=== PATIENT | male | born 1950 | race Caucasian/White ===

== ENCOUNTER 2019-10-20 14:08 | Inpatient (IN) ==
[2019-10-20] MEDS ORDERED: 0.9 % Sodium Chloride 1,000 ML IVC ONE (14:22)
[2019-10-20] MEDS ORDERED: Piperacillin/Tazobactam 3.375 GM in 0.9 % Sodium Chloride Mini Bag 100 ML IVPB ONE (14:24)
[2019-10-20] MEDS ORDERED: Vancomycin 1,250 MG/262.5 ML IV.SOLN IVPB STA (14:27)
[2019-10-20 14:43] LABS: Prothrombin Time 23.1 Seconds (9.4-12.1)
[2019-10-20 14:44] LABS: Basophils % 0.4 %; Eosinophils # 0.1 K/mcL (0.0-0.6); Eosinophils % 1.4 %; Hematocrit 27.5 % (37.5-50.1); Hemoglobin 8.7 g/dL (12.9-16.9); Immature Granulocytes % 1.4 % (0-4); Lymphocytes # 0.9 K/mcL (0.6-4.6); Lymphocytes % 10.8 %; Mean Corpuscular HGB Conc 31.6 g/dL (31.6-35.5); Mean Corpuscular Hemoglobin 33.1 pg (28.0-33.3); Mean Corpuscular Volume 104.6 fL (83.0-100.0); Mean Platelet Volume 11.6 fL (9.4-12.4); Monocytes # 0.9 K/mcL (0.0-1.3); Monocytes % 10.7 %; Platelet Count 163 K/mcL (140-400); Red Blood Count 2.63 M/mcL (4.19-5.50); Red Cell Distribution Width 17.6 % (11.5-14.5); Segmented Neutrophils % 75.3 %
[2019-10-20 14:45] LABS: Activated Partial Thrombo Time 21.9 Seconds (26.0-36.0)
[2019-10-20 14:58] LABS: ABG Base Excess 4 mEq/L (-2 to 3); ABG HCO3 30 mEq/L (21-27); ABG Oxygen Saturation 99 % (95-98); ABG PCO2 48 mmHg (35-45); ABG PO2 160 mmHg (85-104); ABG TCO2 31 mEq/L (20-26); Blood Gas FiO2 3.5 (1-15=lpm or21-100=%)
[2019-10-20 15:20] LABS: Albumin 3.4 g/dL (3.5-5.7); Albumin/Globulin Ratio 1.1 (1.1-2.2); Bilirubin,Direct 0.3 mg/dL (0.0-0.2); Bilirubin,Indirect 0.7 mg/dL (0.0-1.0); Calcium 8.2 mg/dL (8.6-10.3); Magnesium 1.7 mg/dL (1.6-2.6); Phosphorous 4.8 mg/dL (2.7-4.5); Potassium 4.3 mEq/L (3.5-5.1); Total Protein 6.4 g/dL (6.4-8.9)
[2019-10-20 15:59] LABS: Troponin I 0.08 ng/mL (< 0.04)
[2019-10-20 17:55] LABS: Bilirubin,Urine Negative (Negative); Blood,Urine Negative (Negative); Clarity,Urine Clear (Clear); Color,Urine Yellow (Yellow); Glucose,Urine (UA) Normal (Normal); Ketones,Urine Negative (Negative); Leukocyte Esterase,Urine Negative (Negative); Nitrite,Urine Negative (Negative); Protein,Urine Negative (Neg-Trace); Specific Gravity,Urine 1.013 (1.010-1.025); Urobilinogen,Urine Normal (Normal)
[2019-10-20] MEDS ORDERED: Naloxone 0.4 MG/ML INJ IVP PRN (20:43)
[2019-10-20] MEDS ORDERED: Dextrose Gel 15 GM/37.5 ML TUBE PO PRN ×2 (22:35)
[2019-10-20] MEDS ORDERED: D5% in Water 1,000 ML IVC PRN (22:35)
[2019-10-20] MEDS ORDERED: *HR* Dextrose 50 % in Water (Syg) 50 ML SYRINGE IVP PRN (22:35)
[2019-10-20] MEDS ORDERED: Nitroglycerin 0.4 MG TAB.SUBL SL PRN (22:36)
[2019-10-20] MEDS ORDERED: *HR* Warfarin 2.5 MG TABLET PO ONE (23:09)
[2019-10-21] MEDS ORDERED: 0.9 % Sodium Chloride 1,000 ML IV ONE (00:13)
[2019-10-21 03:13] LABS: Basophils % 0.4 %; Eosinophils # 0.3 K/mcL (0.0-0.6); Eosinophils % 4.1 %; Hematocrit 25.3 % (37.5-50.1); Immature Granulocytes % 1.1 % (0-4); Lymphocytes # 0.7 K/mcL (0.6-4.6); Lymphocytes % 9.9 %; Mean Corpuscular HGB Conc 31.6 g/dL (31.6-35.5); Mean Corpuscular Hemoglobin 33.1 pg (28.0-33.3); Mean Corpuscular Volume 104.5 fL (83.0-100.0); Mean Platelet Volume 11.5 fL (9.4-12.4); Monocytes # 0.8 K/mcL (0.0-1.3); Monocytes % 11.2 %; Neutrophils # 5.3 K/mcL (1.6-8.9); Platelet Count 126 K/mcL (140-400); Red Blood Count 2.42 M/mcL (4.19-5.50); Red Cell Distribution Width 17.6 % (11.5-14.5); Segmented Neutrophils % 73.3 %; White Blood Count 7.2 K/mcL (4.3-11.1)
[2019-10-21 03:36] LABS: INR 2.5; Prothrombin Time 28.8 Seconds (9.4-12.1)
[2019-10-21 03:44] LABS: Troponin I 0.06 ng/mL (< 0.04)
[2019-10-21 04:09] LABS: Albumin 2.9 g/dL (3.5-5.7); Albumin/Globulin Ratio 1.1 (1.1-2.2); Bilirubin,Total 0.8 mg/dL (0.3-1.0); Calcium 7.6 mg/dL (8.6-10.3); Globulin 2.6 g/dL (2.4-3.5); Magnesium 1.6 mg/dL (1.6-2.6); Phosphorous 4.1 mg/dL (2.7-4.5); Potassium 3.9 mEq/L (3.5-5.1); Total Protein 5.5 g/dL (6.4-8.9)
[2019-10-21] MEDS: Piperacillin/Tazobactam 3.375 GM in 0.9 % Sodium Chloride Mini Bag 100 ML IVPB SCH ×3 (06:02→21:26)
[2019-10-21] MEDS: PARoxetine 20 MG TABLET PO SCH (08:14)
[2019-10-21] MEDS: Aspirin Enteric Coated 81 MG Tablet PO SCH (08:14)
[2019-10-21] MEDS: carvediloL 6.25 MG TABLET PO SCH ×2 (08:15→21:11)
[2019-10-21] MEDS: Famotidine 20 MG TABLET PO SCH ×2 (08:15→21:26)
[2019-10-21] MEDS: Insulin LISPRO 300 UNITS/3 ML VIAL SQ SCH ×3 (09:13→16:07)
[2019-10-21] MEDS: Tiotropium 18 MCG inhalation IH SCH (10:37)
[2019-10-21] MEDS ORDERED: Vancomycin 1,250 MG/262.5 ML IV.SOLN IVPB SCH (16:00)
[2019-10-21] MEDS ORDERED: *HR* Warfarin 2.5 MG TABLET PO ONE (18:00)
[2019-10-21] MEDS ORDERED: Warfarin perPT PO PRN (18:00)
[2019-10-21] MEDS ORDERED: Insulin LISPRO 300 UNITS/3 ML VIAL SQ SCH (21:00)
[2019-10-22 05:15] LABS: INR 2.9; Prothrombin Time 32.8 Seconds (9.4-12.1)
[2019-10-22] MEDS: Piperacillin/Tazobactam 3.375 GM in 0.9 % Sodium Chloride Mini Bag 100 ML IVPB SCH (05:51)
[2019-10-22] MEDS: Famotidine 20 MG TABLET PO SCH (08:19)
[2019-10-22] MEDS: Aspirin Enteric Coated 81 MG Tablet PO SCH (08:19)
[2019-10-22] MEDS: PARoxetine 20 MG TABLET PO SCH (08:19)
[2019-10-22] MEDS: carvediloL 6.25 MG TABLET PO SCH (08:20)
[2019-10-22] MEDS: Insulin LISPRO 300 UNITS/3 ML VIAL SQ SCH ×2 (08:20→12:27)
[2019-10-22 08:26] LABS: Hematocrit 24.2 % (37.5-50.1); Hemoglobin 7.8 g/dL (12.9-16.9); Mean Corpuscular HGB Conc 32.2 g/dL (31.6-35.5); Mean Corpuscular Hemoglobin 33.8 pg (28.0-33.3); Mean Corpuscular Volume 104.8 fL (83.0-100.0); Mean Platelet Volume 10.8 fL (9.4-12.4); Platelet Count 129 K/mcL (140-400); Red Blood Count 2.31 M/mcL (4.19-5.50); Red Cell Distribution Width 17.6 % (11.5-14.5); White Blood Count 6.7 K/mcL (4.3-11.1)
[2019-10-22 08:46] LABS: BUN/Creatinine Ratio 18 (6-26); Blood Urea Nitrogen 24 mg/dL (8-23); Calcium 7.8 mg/dL (8.6-10.3); Carbon Dioxide 28 mEq/L (23-29); Chloride 102 mEq/L (98-107); Glucose 118 mg/dL (70-105); Magnesium 1.7 mg/dL (1.6-2.6); Osmolality,Calculated 287 (280-300); Potassium 3.6 mEq/L (3.5-5.1); Sodium 136 mEq/L (136-145); eGFR For African Americans > 60 (> 60); eGFR For Non-African Americans 55 (> 60)
[2019-10-22 11:16] VITALS: BP 101/53
[2019-10-22] MEDS: Tiotropium 18 MCG inhalation IH SCH (11:21)
[2019-10-22] MEDS ORDERED: *HR* Warfarin 2.5 MG TABLET PO ONE (18:00)
== END 2019-10-22 14:26 | disposition left against medical advice (07) | DRG 194 ==
LOC: 3NENU 14:08 → EMEROOARM 14:08 → 3NENU 21:48 → ICNU 21:56 → 3BNU 10-21 17:58
PROVIDERS: ADMIT Family Medicine; ATTEND Family Medicine

== ENCOUNTER 2019-11-12 05:21 | Inpatient (IN) ==
[2019-11-12] MEDS ORDERED: 0.9 % Sodium Chloride 1,000 ML IVC ONE (05:28)
[2019-11-12] MEDS ORDERED: 0.9 % Sodium Chloride 1,000 ML ONE ×3 (05:38→07:21)
[2019-11-12 06:03] LABS: Basophils % 0.3 %; Eosinophils % 0.4 %; Hematocrit 30.8 % (37.5-50.1); Hemoglobin 9.9 g/dL (12.9-16.9); Immature Granulocytes % 0.7 % (0-4); Lymphocytes % 12.7 %; Mean Corpuscular HGB Conc 32.1 g/dL (31.6-35.5); Mean Corpuscular Hemoglobin 32.8 pg (28.0-33.3); Mean Platelet Volume 11.9 fL (9.4-12.4); Monocytes # 0.5 K/mcL (0.0-1.3); Monocytes % 6.1 %; Platelet Count 125 K/mcL (140-400); Red Blood Count 3.02 M/mcL (4.19-5.50); Red Cell Distribution Width 15.9 % (11.5-14.5); Segmented Neutrophils % 79.8 %; White Blood Count 7.5 K/mcL (4.3-11.1)
[2019-11-12 06:07] LABS: INR 1.5; Prothrombin Time 17.4 Seconds (9.4-12.1)
[2019-11-12 06:09] LABS: Activated Partial Thrombo Time 31.6 Seconds (26.0-36.0)
[2019-11-12 06:17] LABS: Bilirubin,Urine Negative (Negative); Blood,Urine Negative (Negative); Clarity,Urine Clear (Clear); Color,Urine Yellow (Yellow); Glucose,Urine (UA) Normal (Normal); Ketones,Urine Negative (Negative); Leukocyte Esterase,Urine Negative (Negative); Nitrite,Urine Negative (Negative); Protein,Urine Trace mg/dL (Neg-Trace); Specific Gravity,Urine 1.019 (1.010-1.025); Urobilinogen,Urine Normal (Normal)
[2019-11-12] MEDS ORDERED: 0.9 % Sodium Chloride 1,000 ML IV ONE (06:17)
[2019-11-12] MEDS ORDERED: 0.9 % Sodium Chloride 500 ML IVC ONE (07:06)
[2019-11-12 07:23] LABS: Albumin 3.5 g/dL (3.5-5.7); Albumin/Globulin Ratio 1.3 (1.1-2.2); Bilirubin,Direct 0.1 mg/dL (0.0-0.2); Bilirubin,Indirect 0.3 mg/dL (0.0-1.0); Bilirubin,Total 0.4 mg/dL (0.3-1.0); Calcium 8.3 mg/dL (8.6-10.3); Globulin 2.8 g/dL (2.4-3.5); Total Protein 6.3 g/dL (6.4-8.9); Troponin I 0.03 ng/mL (< 0.04)
[2019-11-12] MEDS ORDERED: Insulin Regular, Human 100 UNIT/ML IV ONE (08:34)
[2019-11-12] MEDS ORDERED: *HR* Dextrose 25% in Water (Syg) 10 ML SYRINGE IVP ONE (08:34)
[2019-11-12] MEDS ORDERED: Vancomycin 1,250 MG/262.5 ML IV.SOLN IVPB ONE (08:46)
[2019-11-12] MEDS: Vancomycin 1,250 MG/262.5 ML IV.SOLN IVPB ONE ×2 (08:47→11:09)
[2019-11-12] MEDS: Cefepime HCl 2,000 MG in Water for inj. (sterile) 20 ML IVP SCH ×2 (09:53→21:43)
[2019-11-12] MEDS: Norepinephrine 4 MG/254 ML IV.SOLN IVC SCH (09:54)
[2019-11-12] MEDS ORDERED: Perflutren Lipid Microsphere 1.3 ML in 0.9 % Sodium Chloride 8.7 ML IVP ONE (13:46)
[2019-11-12 14:29] LABS: Hematocrit 26.3 % (37.5-50.1); Hemoglobin 8.4 g/dL (12.9-16.9); Mean Corpuscular HGB Conc 31.9 g/dL (31.6-35.5); Mean Corpuscular Hemoglobin 32.2 pg (28.0-33.3); Mean Corpuscular Volume 100.8 fL (83.0-100.0); Platelet Count 125 K/mcL (140-400); Red Blood Count 2.61 M/mcL (4.19-5.50); Red Cell Distribution Width 15.9 % (11.5-14.5)
[2019-11-12] MEDS ORDERED: 0.9 % Sodium Chloride 1,000 ML IVC SCH (14:30)
[2019-11-12] MEDS ORDERED: *HR* Dextrose 50 % in Water (Syg) 50 ML SYRINGE IVP PRN (14:31)
[2019-11-12] MEDS ORDERED: Dextrose Gel 15 GM/37.5 ML TUBE PO PRN ×2 (14:31)
[2019-11-12] MEDS ORDERED: D5% in Water 1,000 ML IVC PRN (14:31)
[2019-11-12] MEDS: Ringers Solution, Lactated 1,000 ML IVC SCH ×2 (15:10→23:26)
[2019-11-12] MEDS ORDERED: Cefepime HCl 2,000 MG in Water for inj. (sterile) 20 ML IVP SCH (16:00)
[2019-11-12] MEDS: Insulin LISPRO 300 UNITS/3 ML VIAL SQ SCH (16:48)
[2019-11-12] MEDS ORDERED: Warfarin perPT PO PRN (18:00)
[2019-11-12] MEDS ORDERED: *HR* Warfarin 5 MG TABLET PO ONE (18:00)
[2019-11-12] MEDS ORDERED: *HR* Heparin 5,000 UNIT/ML VIAL SQ SCH (18:00)
[2019-11-12] MEDS ORDERED: *HR* Warfarin 3 MG TABLET PO ONE (18:00)
[2019-11-12] MEDS ORDERED: Insulin LISPRO 300 UNITS/3 ML VIAL SQ SCH (21:00)
[2019-11-13 03:32] LABS: Basophils % 0.5 %; Eosinophils # 0.1 K/mcL (0.0-0.6); Eosinophils % 1.9 %; Hematocrit 23.8 % (37.5-50.1); Hemoglobin 7.6 g/dL (12.9-16.9); Immature Granulocytes % 0.9 % (0-4); Lymphocytes # 1.1 K/mcL (0.6-4.6); Mean Corpuscular HGB Conc 31.9 g/dL (31.6-35.5); Mean Corpuscular Hemoglobin 32.2 pg (28.0-33.3); Mean Corpuscular Volume 100.8 fL (83.0-100.0); Monocytes # 0.5 K/mcL (0.0-1.3); Monocytes % 7.9 %; Neutrophils # 4.1 K/mcL (1.6-8.9); Platelet Count 104 K/mcL (140-400); Red Blood Count 2.36 M/mcL (4.19-5.50); Red Cell Distribution Width 16.1 % (11.5-14.5); Segmented Neutrophils % 69.8 %; White Blood Count 5.8 K/mcL (4.3-11.1)
[2019-11-13 03:35] LABS: INR 2.2; Prothrombin Time 24.7 Seconds (9.4-12.1)
[2019-11-13 03:49] LABS: Albumin 3.1 g/dL (3.5-5.7); Albumin/Globulin Ratio 1.2 (1.1-2.2); Bilirubin,Total 0.3 mg/dL (0.3-1.0); Calcium 8.4 mg/dL (8.6-10.3); Globulin 2.5 g/dL (2.4-3.5); Potassium 5.1 mEq/L (3.5-5.1); Total Protein 5.6 g/dL (6.4-8.9)
[2019-11-13] MEDS: Insulin LISPRO 300 UNITS/3 ML VIAL SQ SCH ×3 (07:35→16:26)
[2019-11-13] MEDS: Ringers Solution, Lactated 1,000 ML IVC SCH ×2 (08:17→17:10)
[2019-11-13] MEDS ORDERED: Cosyntropin 250 MCG/2 ML VIAL IVP ONE (10:00)
[2019-11-13] MEDS: Norepinephrine 4 MG/254 ML IV.SOLN IVC SCH (10:37)
[2019-11-13] MEDS: Cefepime HCl 2,000 MG in Water for inj. (sterile) 20 ML IVP SCH ×2 (10:37→23:26)
[2019-11-13 14:06] LABS: Bilirubin,Urine Negative (Negative); Blood,Urine Negative (Negative); Clarity,Urine Cloudy (Clear); Color,Urine Yellow (Yellow); Glucose,Urine (UA) Normal (Normal); Ketones,Urine Negative (Negative); Leukocyte Esterase,Urine Negative (Negative); Nitrite,Urine Negative (Negative); PH,Urine 5.5 pH Units (5.0-8.0); Protein,Urine 30 mg/dL (Neg-Trace); Specific Gravity,Urine 1.018 (1.010-1.025); Urobilinogen,Urine Normal (Normal)
[2019-11-13 14:07] LABS: Bacteria,Urine None Seen per hpf (None-Few); RBC,Urine 0-3 per hpf (0-3); Squamous Epithelial Cell,Urine Many per lpf (None-Few)
[2019-11-13 14:12] LABS: Sodium, Urine 33.3 mEq/L
[2019-11-13 15:01] LABS: Hyaline Casts,Urine Few per lpf (None-Few)
[2019-11-13 15:02] LABS: Granular Casts,Urine Moderate per lpf (None Seen)
[2019-11-13] MEDS ORDERED: Warfarin perPT PO PRN (16:37)
[2019-11-13] MEDS ORDERED: Dextrose Gel 15 GM/37.5 ML TUBE PO PRN ×2 (16:37)
[2019-11-13] MEDS ORDERED: Ondansetron ODT 4 MG TAB.RAPDIS PO PRN (16:37)
[2019-11-13] MEDS ORDERED: haloperidoL 1 MG TABLET PO PRN (16:37)
[2019-11-13] MEDS ORDERED: *HR* Dextrose 50 % in Water (Syg) 50 ML SYRINGE IVP PRN (16:37)
[2019-11-13] MEDS ORDERED: Morphine Sulfate Oral CONC 10 MG/0.5 ML ORAL.SYG PO PRN (16:37)
[2019-11-13] MEDS ORDERED: D5% in Water 1,000 ML IVC PRN (16:37)
[2019-11-13] MEDS ORDERED: *HR* Warfarin 1 MG TABLET PO ONE ×2 (18:00)
[2019-11-13] MEDS ORDERED: Vancomycin 1,250 MG/262.5 ML IV.SOLN IVPB SCH (18:00)
[2019-11-13] MEDS ORDERED: Insulin LISPRO 300 UNITS/3 ML VIAL SQ SCH (21:00)
[2019-11-14 02:21] LABS: Basophils % 0.4 %; Eosinophils # 0.1 K/mcL (0.0-0.6); Eosinophils % 1.5 %; Hematocrit 23.1 % (37.5-50.1); Hemoglobin 7.6 g/dL (12.9-16.9); Immature Granulocytes % 0.8 % (0-4); Lymphocytes # 0.9 K/mcL (0.6-4.6); Lymphocytes % 18.9 %; Mean Corpuscular HGB Conc 32.9 g/dL (31.6-35.5); Mean Corpuscular Hemoglobin 32.5 pg (28.0-33.3); Mean Corpuscular Volume 98.7 fL (83.0-100.0); Mean Platelet Volume 11.2 fL (9.4-12.4); Monocytes # 0.4 K/mcL (0.0-1.3); Monocytes % 8.2 %; Neutrophils # 3.3 K/mcL (1.6-8.9); Platelet Count 106 K/mcL (140-400); Red Blood Count 2.34 M/mcL (4.19-5.50); Red Cell Distribution Width 15.9 % (11.5-14.5); Segmented Neutrophils % 70.2 %; White Blood Count 4.8 K/mcL (4.3-11.1)
[2019-11-14 02:22] LABS: INR 2.3; Prothrombin Time 26.6 Seconds (9.4-12.1)
[2019-11-14 02:34] LABS: Alanine Aminotransferase 16 Units/L (7-52); Albumin/Globulin Ratio 1.2 (1.1-2.2); Alkaline Phosphatase 54 Units/L (34-104); Aspartate Amino Transferase 15 Units/L (13-39); BUN/Creatinine Ratio 35 (6-26); Bilirubin,Total 0.3 mg/dL (0.3-1.0); Blood Urea Nitrogen 44 mg/dL (8-23); Calcium 8.5 mg/dL (8.6-10.3); Carbon Dioxide 18 mEq/L (23-29); Chloride 106 mEq/L (98-107); Globulin 2.5 g/dL (2.4-3.5); Glucose 131 mg/dL (70-105); Magnesium 1.3 mg/dL (1.6-2.6); Osmolality,Calculated 279 (280-300); Potassium 4.9 mEq/L (3.5-5.1); Sodium 128 mEq/L (136-145); Total Protein 5.5 g/dL (6.4-8.9); eGFR For African Americans > 60 (> 60); eGFR For Non-African Americans 56 (> 60)
[2019-11-14] MEDS: Ringers Solution, Lactated 1,000 ML IVC SCH (04:29)
[2019-11-14] MEDS ORDERED: Insulin LISPRO 300 UNITS/3 ML VIAL SQ SCH (07:30)
[2019-11-14 08:00] VITALS: BP 122/66
[2019-11-14] MEDS ORDERED: Famotidine 20 MG TABLET PO SCH (09:00)
[2019-11-14] MEDS ORDERED: Psyllium 1 PACKET POWD.PACK PO SCH (09:00)
[2019-11-14] MEDS: Cefepime HCl 2,000 MG in Water for inj. (sterile) 20 ML IVP SCH (10:38)
== END 2019-11-14 13:13 | disposition home or self-care (01) | DRG 871 ==
LOC: EMEROOARM 05:21 → ICNU 10:42 → 2ANU 11-13 16:59
PROVIDERS: ADMIT Family Medicine; ATTEND Family Medicine

== ENCOUNTER 2019-11-29 15:12 | Inpatient (IN) ==
[2019-11-29] MEDS ORDERED: Isovue-370 500 ML BOTTLE IVP ONE (15:32)
[2019-11-29] MEDS: 0.9 % Sodium Chloride 1,000 ML IVC SCH (15:45)
[2019-11-29 16:05] LABS: Basophils % 0.4 %; Eosinophils % 0.7 %; Hematocrit 28.7 % (37.5-50.1); Hemoglobin 9.4 g/dL (12.9-16.9); Immature Granulocytes % 0.4 % (0-4); Lymphocytes # 0.6 K/mcL (0.6-4.6); Lymphocytes % 11.3 %; Mean Corpuscular HGB Conc 32.8 g/dL (31.6-35.5); Mean Corpuscular Hemoglobin 32.2 pg (28.0-33.3); Mean Corpuscular Volume 98.3 fL (83.0-100.0); Mean Platelet Volume 10.7 fL (9.4-12.4); Monocytes # 0.4 K/mcL (0.0-1.3); Neutrophils # 4.4 K/mcL (1.6-8.9); Platelet Count 137 K/mcL (140-400); Red Blood Count 2.92 M/mcL (4.19-5.50); Red Cell Distribution Width 15.9 % (11.5-14.5); Segmented Neutrophils % 79.2 %; White Blood Count 5.5 K/mcL (4.3-11.1)
[2019-11-29 16:10] LABS: INR 2.5; Prothrombin Time 28.1 Seconds (9.4-12.1)
[2019-11-29 16:32] LABS: Calcium 8.9 mg/dL (8.6-10.3); Troponin I 0.05 ng/mL (< 0.04)
[2019-11-29] MEDS ORDERED: 0.9 % Sodium Chloride 1,000 ML IVC ONE (16:35)
[2019-11-29] MEDS ORDERED: Aspirin 81 MG TAB.CHEW PO ONE (16:35)
[2019-11-29] MEDS ORDERED: Naloxone 0.4 MG/ML INJ IVP PRN (17:20)
[2019-11-29] MEDS ORDERED: Ondansetron 4 MG/2 ML VIAL IVP PRN (17:20)
[2019-11-29] MEDS ORDERED: *HR* Dextrose 50 % in Water (Vial) 50 ML VIAL IVP PRN (17:25)
[2019-11-29] MEDS ORDERED: Dextrose Gel 15 GM/37.5 ML TUBE PO PRN ×2 (17:25)
[2019-11-29] MEDS ORDERED: D5% in Water 1,000 ML IVC PRN (17:25)
[2019-11-29] MEDS ORDERED: Sodium Bicarbonate 150 MEQ in D5% in Water 1,000 ML IVC SCH (17:30)
[2019-11-29 20:01] LABS: Bilirubin,Urine Negative (Negative); Blood,Urine Negative (Negative); Clarity,Urine Clear (Clear); Color,Urine Yellow (Yellow); Glucose,Urine (UA) Normal (Normal); Hyaline Casts,Urine Few per lpf (None Seen); Ketones,Urine Negative (Negative); Leukocyte Esterase,Urine Negative (Negative); Nitrite,Urine Negative (Negative); PH,Urine 5.5 pH Units (5.0-8.0); Protein,Urine 50 mg/dL (Neg-Trace); RBC,Urine 0-3 per hpf (0-3); Renal Epithelial Cells,Urine Few per hpf (None-Few); Squamous Epithelial Cell,Urine Few per hpf (None-Few); Transitional Epi Cells,Urine Few per hpf (None-Few); Urobilinogen,Urine Normal (Normal); WBC,Urine 0-3 per hpf (0-3)
[2019-11-29] MEDS: Insulin DETEMIR 100 UNIT/ML X5UNITS SQ SCH (22:29)
[2019-11-30 05:16] LABS: Basophils % 0.5 %; Eosinophils # 0.1 K/mcL (0.0-0.6); Eosinophils % 2.1 %; Hematocrit 22.8 % (37.5-50.1); Immature Granulocytes % 0.5 % (0-4); Lymphocytes # 0.9 K/mcL (0.6-4.6); Lymphocytes % 21.4 %; Mean Corpuscular HGB Conc 33.8 g/dL (31.6-35.5); Mean Corpuscular Hemoglobin 32.8 pg (28.0-33.3); Mean Platelet Volume 10.8 fL (9.4-12.4); Monocytes # 0.4 K/mcL (0.0-1.3); Neutrophils # 2.8 K/mcL (1.6-8.9); Platelet Count 106 K/mcL (140-400); Red Blood Count 2.35 M/mcL (4.19-5.50); Red Cell Distribution Width 15.7 % (11.5-14.5); Segmented Neutrophils % 65.5 %; White Blood Count 4.3 K/mcL (4.3-11.1)
[2019-11-30 05:17] LABS: Hemoglobin 7.7 g/dL (12.9-16.9)
[2019-11-30 05:41] LABS: Calcium 7.9 mg/dL (8.6-10.3); Potassium 4.8 mEq/L (3.5-5.1); Troponin I 0.04 ng/mL (< 0.04)
[2019-11-30 05:56] LABS: Folate 9.6 ng/mL (3.0-16.0)
[2019-11-30 05:57] LABS: Vitamin B12 160 pg/mL (250-1100)
[2019-11-30 06:00] LABS: Thyroid Stimulating Hormone 1.047 mcIU/mL (0.340-5.600)
[2019-11-30] MEDS ORDERED: Iron Sucrose Complex 400 MG in 0.9 % Sodium Chloride 250 ML IVPB ONE (07:29)
[2019-11-30] MEDS: 0.9 % Sodium Chloride 1,000 ML IVC SCH (07:38)
[2019-11-30] MEDS: Insulin LISPRO 300 UNITS/3 ML VIAL SQ SCH ×3 (08:29→16:56)
[2019-11-30] MEDS ORDERED: Cyanocobalamin (B-12) 1,000 MCG/ML VIAL SQ SCH (09:00)
[2019-11-30] MEDS: Cyanocobalamin (B-12) 1,000 MCG/ML VIAL IM SCH (10:57)
[2019-11-30] MEDS ORDERED: *HR* LORazepam 0.5 MG TABLET PO PRN (13:33)
[2019-11-30] MEDS ORDERED: Bisacodyl 10 MG RECTAL SUPPOSITORY RC PRN (13:33)
[2019-11-30] MEDS ORDERED: Sennosides 8.6 MG TABLET PO PRN (13:33)
[2019-11-30] MEDS ORDERED: *HR* HYDROcodone/Acet 5/325 mg TABLET PO PRN (13:33)
[2019-11-30] MEDS ORDERED: Acetaminophen 650 MG RECTAL SUPP RC PRN (13:33)
[2019-11-30] MEDS ORDERED: Ondansetron ODT 4 MG TAB.RAPDIS PO PRN (13:33)
[2019-11-30] MEDS ORDERED: Morphine Sulfate Oral CONC 10 MG/0.5 ML ORAL.SYG PO PRN (13:33)
[2019-11-30] MEDS: Sodium Bicarbonate 150 MEQ in D5% in Water 1,000 ML IVC SCH ×2 (14:17→21:53)
[2019-11-30] MEDS: Psyllium 1 PACKET POWD.PACK PO SCH ×2 (16:57→20:40)
[2019-11-30 18:00] LABS: Uric Acid 9.7 mg/dL (2.3-7.6)
[2019-11-30] MEDS ORDERED: *HR* Warfarin 2.5 MG TABLET PO ONE (18:00)
[2019-11-30] MEDS ORDERED: Warfarin perPT PO PRN (18:00)
[2019-11-30 19:35] LABS: Hepatitis B Surface Antigen Nonreactive (Nonreactive)
[2019-11-30 20:04] LABS: Hepatitis B Core IgM Nonreactive (Nonreactive)
[2019-11-30 20:05] LABS: Hepatitis C Virus Antibody Nonreactive (Nonreactive)
[2019-11-30 20:06] LABS: Hepatitis A Antibody IgM Nonreactive (Nonreactive)
[2019-11-30] MEDS: Insulin DETEMIR 100 UNIT/ML X5UNITS SQ SCH (21:01)
[2019-11-30] MEDS ORDERED: 0.9 % Sodium Chloride 1,000 ML IVC ONE (22:39)
[2019-12-01 04:24] LABS: Hematocrit 23.1 % (37.5-50.1); Hemoglobin 8.1 g/dL (12.9-16.9); Mean Corpuscular HGB Conc 35.1 g/dL (31.6-35.5); Mean Corpuscular Hemoglobin 33.1 pg (28.0-33.3); Mean Corpuscular Volume 94.3 fL (83.0-100.0); Mean Platelet Volume 10.9 fL (9.4-12.4); Platelet Count 119 K/mcL (140-400); Red Blood Count 2.45 M/mcL (4.19-5.50); Red Cell Distribution Width 15.9 % (11.5-14.5); White Blood Count 4.5 K/mcL (4.3-11.1)
[2019-12-01 04:33] LABS: INR 2.5; Prothrombin Time 28.9 Seconds (9.4-12.1)
[2019-12-01 04:36] LABS: Potassium 4.5 mEq/L (3.5-5.1)
[2019-12-01 04:40] LABS: Magnesium 1.4 mg/dL (1.6-2.6); Phosphorous 3.2 mg/dL (2.7-4.5)
[2019-12-01] MEDS ORDERED: Famotidine 20 MG TABLET PO SCH (09:00)
[2019-12-01] MEDS: Metoprolol XL (24 HR) Succ 25 MG TAB.ER.24H PO SCH (09:50)
[2019-12-01] MEDS: Famotidine 20 MG TABLET PO SCH (09:50)
[2019-12-01] MEDS: Cyanocobalamin (B-12) 1,000 MCG/ML VIAL IM SCH (09:51)
[2019-12-01] MEDS: PARoxetine 20 MG TABLET PO SCH (09:51)
[2019-12-01] MEDS: Psyllium 1 PACKET POWD.PACK PO SCH ×3 (09:51→22:51)
[2019-12-01] MEDS: Insulin LISPRO 300 UNITS/3 ML VIAL SQ SCH ×3 (09:53→18:15)
[2019-12-01] MEDS: 0.9 % Sodium Chloride 1,000 ML IVC SCH ×2 (13:01→22:52)
[2019-12-01] MEDS ORDERED: *HR* Warfarin 2.5 MG TABLET PO ONE (18:00)
[2019-12-01] MEDS: Insulin DETEMIR 100 UNIT/ML X5UNITS SQ SCH (22:51)
[2019-12-02 02:29] LABS: Prothrombin Time 22.6 Seconds (9.4-12.1)
[2019-12-02 02:48] LABS: Potassium 5.1 mEq/L (3.5-5.1)
[2019-12-02 08:14] VITALS: BP 125/66
[2019-12-02] MEDS: Insulin LISPRO 300 UNITS/3 ML VIAL SQ SCH (08:18)
[2019-12-02] MEDS: Famotidine 20 MG TABLET PO SCH (09:19)
[2019-12-02] MEDS: Metoprolol XL (24 HR) Succ 25 MG TAB.ER.24H PO SCH (09:19)
[2019-12-02] MEDS: PARoxetine 20 MG TABLET PO SCH (09:19)
[2019-12-02] MEDS: Cyanocobalamin (B-12) 1,000 MCG/ML VIAL IM SCH (09:20)
[2019-12-02] MEDS: Psyllium 1 PACKET POWD.PACK PO SCH (09:20)
[2019-12-02] MEDS ORDERED: *HR* Warfarin 2.5 MG TABLET PO ONE (18:00)
== END 2019-12-02 10:25 | disposition home health service (06) | DRG 281 ==
LOC: EMEROOARM 15:12 → 2ANU 15:12 → SUATTDRO 11-30 11:57
PROVIDERS: ADMIT Internal Medicine; ATTEND Internal Medicine

== ENCOUNTER 2019-12-22 14:23 | Inpatient (IN) ==
[2019-12-22] MEDS ORDERED: 0.9 % Sodium Chloride 500 ML IVC ONE (14:33)
[2019-12-22 14:57] LABS: Basophils % 0.3 %; Eosinophils % 0.5 %; Hematocrit 34.8 % (37.5-50.1); Hemoglobin 11.6 g/dL (12.9-16.9); Immature Granulocytes % 0.8 % (0-4); Lymphocytes # 1.3 K/mcL (0.6-4.6); Mean Corpuscular HGB Conc 33.3 g/dL (31.6-35.5); Mean Corpuscular Hemoglobin 32.3 pg (28.0-33.3); Mean Corpuscular Volume 96.9 fL (83.0-100.0); Mean Platelet Volume 10.8 fL (9.4-12.4); Monocytes # 0.8 K/mcL (0.0-1.3); Monocytes % 9.7 %; Neutrophils # 5.7 K/mcL (1.6-8.9); Platelet Count 141 K/mcL (140-400); Red Blood Count 3.59 M/mcL (4.19-5.50); Red Cell Distribution Width 15.8 % (11.5-14.5); Segmented Neutrophils % 72.7 %; White Blood Count 7.8 K/mcL (4.3-11.1)
[2019-12-22 15:02] LABS: INR 2.8; Prothrombin Time 32.4 Seconds (9.4-12.1)
[2019-12-22 15:16] LABS: Calcium 10.1 mg/dL (8.6-10.3); Potassium 5.2 mEq/L (3.5-5.1)
[2019-12-22 15:45] LABS: Bilirubin,Urine Negative (Negative); Blood,Urine Negative (Negative); Clarity,Urine Clear (Clear); Color,Urine Light-Yellow (Yellow); Glucose,Urine (UA) Normal (Normal); Granular Casts,Urine Few per lpf (None Seen); Ketones,Urine Negative (Negative); Leukocyte Esterase,Urine Negative (Negative); Mucus,Urine Few per lpf (None-Few); Nitrite,Urine Negative (Negative); Protein,Urine 30 mg/dL (Neg-Trace); RBC,Urine 0-3 per hpf (0-3); Specific Gravity,Urine 1.019 (1.010-1.025); Urobilinogen,Urine Normal (Normal); WBC,Urine 0-3 per hpf (0-3)
[2019-12-22 15:46] LABS: Amorphous Sediment,Urine Few per hpf (None-Few); Squamous Epithelial Cell,Urine Few per hpf (None-Few)
[2019-12-22 15:50] LABS: Hyaline Casts,Urine Moderate per lpf (None Seen)
[2019-12-22] MEDS ORDERED: *HR* Promethazine 25 MG/ML VIAL IVP PRN (16:19)
[2019-12-22] MEDS ORDERED: Dextrose Gel 15 GM/37.5 ML TUBE PO PRN ×2 (16:44)
[2019-12-22] MEDS ORDERED: Anticoagulation Consult 1 Each MC ONE (17:00)
[2019-12-22] MEDS ORDERED: Warfarin perPT PO PRN (18:00)
[2019-12-22] MEDS: Insulin LISPRO 300 UNITS/3 ML VIAL SQ SCH ×2 (20:58)
[2019-12-22] MEDS: Insulin DETEMIR 100 UNIT/ML X5UNITS SQ SCH (21:11)
[2019-12-22] MEDS: 0.9 % Sodium Chloride 1,000 ML IVC SCH (21:11)
[2019-12-22] MEDS ORDERED: *HR* Warfarin 2.5 MG TABLET PO ONE (21:45)
[2019-12-22 22:45] LABS: Calcium 9.5 mg/dL (8.6-10.3); Potassium 4.9 mEq/L (3.5-5.1)
[2019-12-23] MEDS: 0.9 % Sodium Chloride 1,000 ML IVC SCH (03:13)
[2019-12-23 03:14] LABS: INR 3.1; Prothrombin Time 35.1 Seconds (9.4-12.1)
[2019-12-23 03:24] LABS: Hematocrit 28.8 % (37.5-50.1); Mean Corpuscular Hemoglobin 33.2 pg (28.0-33.3); Mean Corpuscular Volume 97.6 fL (83.0-100.0); Mean Platelet Volume 11.5 fL (9.4-12.4); Platelet Count 115 K/mcL (140-400); Red Blood Count 2.95 M/mcL (4.19-5.50); Red Cell Distribution Width 15.7 % (11.5-14.5); White Blood Count 6.1 K/mcL (4.3-11.1)
[2019-12-23 03:28] LABS: Calcium 8.7 mg/dL (8.6-10.3); Potassium 4.5 mEq/L (3.5-5.1)
[2019-12-23 03:32] LABS: Hemoglobin 9.8 g/dL (12.9-16.9)
[2019-12-23] MEDS: Insulin LISPRO 300 UNITS/3 ML VIAL SQ SCH ×4 (08:11→21:06)
[2019-12-23] MEDS ORDERED: *HR* LORazepam 0.5 MG TABLET PO PRN (13:47)
[2019-12-23] MEDS ORDERED: *HR* HYDROcodone/Acet 5/325 mg TABLET PO PRN (13:47)
[2019-12-23] MEDS ORDERED: *HR* Warfarin 2 MG TABLET PO ONE (18:00)
[2019-12-23] MEDS: Insulin DETEMIR 100 UNIT/ML X5UNITS SQ SCH (21:07)
[2019-12-24 06:32] LABS: Hematocrit 28.7 % (37.5-50.1); Hemoglobin 9.6 g/dL (12.9-16.9); Immature Platelets 4.6 % (1.1-6.1); Mean Corpuscular HGB Conc 33.4 g/dL (31.6-35.5); Mean Corpuscular Hemoglobin 33.2 pg (28.0-33.3); Mean Corpuscular Volume 99.3 fL (83.0-100.0); Mean Platelet Volume 11.5 fL (9.4-12.4); Red Blood Count 2.89 M/mcL (4.19-5.50); Red Cell Distribution Width 16.1 % (11.5-14.5); White Blood Count 7.8 K/mcL (4.3-11.1)
[2019-12-24 06:39] LABS: INR 2.8; Prothrombin Time 32.1 Seconds (9.4-12.1)
[2019-12-24 06:45] LABS: Calcium 8.6 mg/dL (8.6-10.3); Potassium 4.4 mEq/L (3.5-5.1)
[2019-12-24 07:08] VITALS: BP 126/71
[2019-12-24] MEDS: Insulin LISPRO 300 UNITS/3 ML VIAL SQ SCH (08:55)
[2019-12-24] MEDS ORDERED: PARoxetine 20 MG TABLET PO SCH (09:00)
[2019-12-24] MEDS ORDERED: Famotidine 20 MG TABLET PO SCH (09:00)
== END 2019-12-24 11:39 | disposition hospice, home (50) | DRG 683 ==
LOC: EMEROOARM 14:23 → 2ANU 14:23 → SUATTDRO 17:03 → 2ANU 18:12
PROVIDERS: ADMIT Internal Medicine; ATTEND Family Medicine

== ENCOUNTER 2020-05-30 06:03 | Inpatient (IN) ==
[2020-05-30] MEDS ORDERED: Clindamycin 900 MG/50 ML 900 MG/50 ML IV.SOLN IVPB ONE (06:29)
[2020-05-30] MEDS ORDERED: Ringers Solution, Lactated 1,000 ML IVC SCH (06:30)
[2020-05-30] MEDS ORDERED: 0.9 % Sodium Chloride 500 ML IVC SCH ×2 (07:00→18:44)
[2020-05-30] MEDS ORDERED: *HR* FentaNYL (PF) 100 MCG/2 ML VIAL ONE ×3 (07:13→16:30)
[2020-05-30] MEDS ORDERED: Lidocaine -MPF 2% 2 ML VIAL ONE ×3 (07:13→14:43)
[2020-05-30] MEDS ORDERED: Bupivacaine/Clonidine Syringe 20 ML, Syringe LUER-LOK 1 EACH TP ONE ×2 (07:45→18:44)
[2020-05-30 08:01] LABS: INR 2.5; Prothrombin Time 28.3 Seconds (9.4-12.1)
[2020-05-30] MEDS ORDERED: Naloxone 0.4 MG/ML INJ IVP PRN ×2 (09:19→18:44)
[2020-05-30] MEDS ORDERED: *HR* Dextrose 50 % in Water (Vial) 50 ML VIAL IVP PRN ×2 (09:20→18:44)
[2020-05-30] MEDS ORDERED: Dextrose Gel 15 GM/37.5 ML TUBE PO PRN ×4 (09:20→18:44)
[2020-05-30] MEDS ORDERED: D5% in Water 1,000 ML IVC PRN ×2 (09:20→18:44)
[2020-05-30] MEDS ORDERED: Vancomycin 1 EACH in 0.9 % Sodium Chloride 250 ML IVPB SCH ×2 (09:22→18:44)
[2020-05-30] MEDS ORDERED: carvediloL 6.25 MG TABLET PO SCH (09:23)
[2020-05-30] MEDS ORDERED: Piperacillin/Tazobactam 3.375 GM in 0.9 % Sodium Chloride Mini Bag 100 ML IVPB SCH (09:30)
[2020-05-30] MEDS ORDERED: Clindamycin 900 MG/50 ML 900 MG/50 ML IV.SOLN IVPB STA (10:15)
[2020-05-30 10:24] LABS: Hemoglobin 8.1 g/dL (12.9-16.9); Mean Corpuscular HGB Conc 32.4 g/dL (31.6-35.5); Mean Platelet Volume 10.8 fL (9.4-12.4)
[2020-05-30 10:25] LABS: Mean Corpuscular Hemoglobin 31.9 pg (28.0-33.3); Mean Corpuscular Volume 98.4 fL (83.0-100.0); Platelet Count 262 K/mcL (140-400); Red Blood Count 2.54 M/mcL (4.19-5.50)
[2020-05-30] MEDS ORDERED: Morphine Sulfate 2 MG/ML SYRINGE IVP PRN ×2 (10:37→18:44)
[2020-05-30 10:42] LABS: BUN/Creatinine Ratio 21 (6-26); Blood Urea Nitrogen 46 mg/dL (8-23); eGFR For African Americans 37 (> 60); eGFR For Non-African Americans 30 (> 60)
[2020-05-30 10:45] LABS: White Blood Count 30.2 K/mcL (4.3-11.1)
[2020-05-30] MEDS ORDERED: Insulin LISPRO 300 UNITS/3 ML VIAL SUBQ SCH (12:00)
[2020-05-30] MEDS ORDERED: Heparin 1,000 UNITS/500 mL 500 ML ONE (14:32)
[2020-05-30] MEDS ORDERED: Dexamethasone 4 MG/ML VIAL ONE (14:40)
[2020-05-30] MEDS ORDERED: *HR* Succinylcholine 200 MG/10 ML VIAL IVP ONE (14:40)
[2020-05-30] MEDS ORDERED: *HR* Propofol 200 MG/20 ML VIAL IVP ONE (14:40)
[2020-05-30] MEDS ORDERED: Ondansetron 4 MG/2 ML VIAL ONE (14:40)
[2020-05-30] MEDS ORDERED: EPINEPHrine 1 MG/ML VIAL ONE (14:42)
[2020-05-30] MEDS ORDERED: Lidocaine HCL 4 ML Topical Solution (Laryng-O-Jet Kit Sterile Pak) TP ONE (14:43)
[2020-05-30] MEDS ORDERED: *HR* PHENYLEPHRINE 1,000 MCG/10 ML SYRINGE IVP ONE (14:45)
[2020-05-30] MEDS ORDERED: Albumin Human 5% 25.0 GM/500 ML IV.SOLN ONE (14:51)
[2020-05-30] MEDS ORDERED: Ondansetron 4 MG/2 ML VIAL IVP PRN ×2 (14:51→18:44)
[2020-05-30] MEDS ORDERED: *HR* Norepinephrine 4 MG/4 ML VIAL IVC ONE (14:51)
[2020-05-30] MEDS ORDERED: *HR* Vasopressin 20 UNIT/ML VIAL ONE (14:51)
[2020-05-30] MEDS ORDERED: Clindamycin 600 MG/50 ML 600 MG/50 ML IV.SOLN IVPB SCH (16:00)
[2020-05-30] MEDS ORDERED: *HR* Atropine Sulfate 8 MG/20 ML VIAL IVP ONE (16:09)
[2020-05-30 17:06] LABS: ABG Base Excess -10 mEq/L (-2 to 3); ABG Chloride 106 mEq/L (98-107); ABG Glucose 195 mg/dL (60-95); ABG HCO3 17 mEq/L (21-27); ABG Ionized Calcium 1.44 mmol/L (1.15-1.35); ABG Oxygen Saturation 100 % (95-98); ABG PCO2 38 mmHg (35-45); ABG PH 7.24 pH Units (7.32-7.45); ABG PO2 487 mmHg (85-104); ABG TCO2 18 mEq/L (20-26)
[2020-05-30] MEDS: *HR* HYDROmorphone PF 0.5 MG/0.5 ML SYRINGE IVP PRN ×2 (18:09→18:21)
[2020-05-30] MEDS ORDERED: *HR* HYDROmorphone PF 0.5 MG/0.5 ML SYRINGE IVP PRN (18:44)
[2020-05-30 19:53] LABS: INR 1.9; Prothrombin Time 21.1 Seconds (9.4-12.1)
[2020-05-30] MEDS ORDERED: Insulin DETEMIR 100 UNIT/ML X5UNITS SUBQ SCH ×2 (21:00)
[2020-05-30 23:24] LABS: Basophils % 0.1 %; Hematocrit 27.4 % (37.5-50.1); Immature Granulocytes % 0.9 % (0-4); Lymphocytes # 0.5 K/mcL (0.6-4.6); Lymphocytes % 2.4 %; Mean Corpuscular HGB Conc 32.8 g/dL (31.6-35.5); Mean Corpuscular Hemoglobin 31.3 pg (28.0-33.3); Mean Corpuscular Volume 95.1 fL (83.0-100.0); Mean Platelet Volume 10.7 fL (9.4-12.4); Monocytes # 0.4 K/mcL (0.0-1.3); Monocytes % 1.7 %; Neutrophils # 19.7 K/mcL (1.6-8.9); Platelet Count 210 K/mcL (140-400); Red Blood Count 2.88 M/mcL (4.19-5.50); Red Cell Distribution Width 14.8 % (11.5-14.5); Segmented Neutrophils % 94.9 %; White Blood Count 20.7 K/mcL (4.3-11.1)
[2020-05-30 23:47] LABS: Calcium 9.3 mg/dL (8.6-10.3); Potassium 4.8 mEq/L (3.5-5.1)
[2020-05-31] MEDS: Insulin LISPRO 300 UNITS/3 ML VIAL SUBQ SCH ×4 (01:20→19:51)
[2020-05-31] MEDS: Piperacillin/Tazobactam 3.375 GM in 0.9 % Sodium Chloride Mini Bag 100 ML IVPB SCH ×3 (01:21→18:30)
[2020-05-31 03:34] LABS: Enterococcus by PCR Not Detected (Not Detect); mecA Methicillin-Resist Gene DETECTED (Not Detect)
[2020-05-31 03:35] LABS: Acinetobacter baumannii by PCR Not Detected (Not Detect); Candida albicans by PCR Not Detected (Not Detect); Candida glabrata by PCR Not Detected (Not Detect); Candida krusei by PCR Not Detected (Not Detect); Candida parapsilosis by PCR Not Detected (Not Detect); Candida tropicalis by PCR Not Detected (Not Detect); Enterobacter cloacae Cmplx PCR Not Detected (Not Detect); Enterobacteriaceae by PCR Not Detected (Not Detect); Escherichia coli by PCR Not Detected (Not Detect); Klebsiella oxytoca by PCR Not Detected (Not Detect); Klebsiella pneumoniae by PCR Not Detected (Not Detect); Proteus by PCR Not Detected (Not Detect); Pseudomonas aeruginosa by PCR Not Detected (Not Detect); Serratia marcescens by PCR Not Detected (Not Detect); Staphylococcus aureus by PCR DETECTED (Not Detect); Staphylococcus by PCR Not Detected (Not Detect); Streptococcus agalactiae(B)PCR Not Detected (Not Detect); Streptococcus by PCR Not Detected (Not Detect); Streptococcus pneumoniae PCR Not Detected (Not Detect); Streptococcus pyogenes (A) PCR Not Detected (Not Detect)
[2020-05-31 07:39] LABS: Basophils % 0.1 %; Hematocrit 28.3 % (37.5-50.1); Hemoglobin 8.9 g/dL (12.9-16.9); Immature Granulocytes % 0.9 % (0-4); Lymphocytes # 0.5 K/mcL (0.6-4.6); Lymphocytes % 3.3 %; Mean Corpuscular HGB Conc 31.4 g/dL (31.6-35.5); Mean Corpuscular Hemoglobin 30.3 pg (28.0-33.3); Mean Corpuscular Volume 96.3 fL (83.0-100.0); Mean Platelet Volume 10.7 fL (9.4-12.4); Monocytes # 0.5 K/mcL (0.0-1.3); Monocytes % 3.1 %; Platelet Count 218 K/mcL (140-400); Red Blood Count 2.94 M/mcL (4.19-5.50); Red Cell Distribution Width 15.2 % (11.5-14.5); Segmented Neutrophils % 92.6 %; White Blood Count 16.2 K/mcL (4.3-11.1)
[2020-05-31 08:02] LABS: Potassium 4.3 mEq/L (3.5-5.1)
[2020-05-31] MEDS: PARoxetine 20 MG TABLET PO SCH (08:35)
[2020-05-31] MEDS: carvediloL 6.25 MG TABLET PO SCH ×2 (08:35→18:28)
[2020-05-31] MEDS ORDERED: PARoxetine 20 MG TABLET PO SCH (09:00)
[2020-05-31 09:12] LABS: VBG HCO3 20 mEq/L (21-27); VBG PCO2 45 mmHg (41-51); VBG PH 7.26 pH Units (7.32-7.42); VBG PO2 77 mmHg (25-50)
[2020-05-31 09:17] LABS: Calcium 9.1 mg/dL (8.6-10.3); Potassium 4.1 mEq/L (3.5-5.1)
[2020-05-31] MEDS: Clindamycin 600 MG/50 ML 600 MG/50 ML IV.SOLN IVPB SCH (19:48)
[2020-05-31] MEDS: Insulin DETEMIR 100 UNIT/ML X5UNITS SUBQ SCH (19:51)
[2020-06-01] MEDS: Piperacillin/Tazobactam 3.375 GM in 0.9 % Sodium Chloride Mini Bag 100 ML IVPB SCH ×3 (02:26→17:31)
[2020-06-01 03:51] LABS: Acinetobacter baumannii by PCR Not Detected (Not Detect); Candida albicans by PCR Not Detected (Not Detect); Candida glabrata by PCR Not Detected (Not Detect); Candida krusei by PCR Not Detected (Not Detect); Candida parapsilosis by PCR Not Detected (Not Detect); Candida tropicalis by PCR Not Detected (Not Detect); Enterobacter cloacae Cmplx PCR Not Detected (Not Detect); Enterobacteriaceae by PCR Not Detected (Not Detect); Enterococcus by PCR Not Detected (Not Detect); Escherichia coli by PCR Not Detected (Not Detect); Klebsiella oxytoca by PCR Not Detected (Not Detect); Klebsiella pneumoniae by PCR Not Detected (Not Detect); Proteus by PCR Not Detected (Not Detect); Pseudomonas aeruginosa by PCR Not Detected (Not Detect); Serratia marcescens by PCR Not Detected (Not Detect); Staphylococcus aureus by PCR DETECTED (Not Detect); Streptococcus agalactiae(B)PCR Not Detected (Not Detect); Streptococcus by PCR Not Detected (Not Detect); Streptococcus pneumoniae PCR Not Detected (Not Detect); Streptococcus pyogenes (A) PCR Not Detected (Not Detect); vanA/B Vancomycin-Resist Genes Not Detected (Not Detect)
[2020-06-01 03:52] LABS: mecA Methicillin-Resist Gene DETECTED (Not Detect)
[2020-06-01] MEDS: Clindamycin 600 MG/50 ML 600 MG/50 ML IV.SOLN IVPB SCH ×3 (05:40→19:48)
[2020-06-01] MEDS: PARoxetine 20 MG TABLET PO SCH (08:57)
[2020-06-01] MEDS: carvediloL 6.25 MG TABLET PO SCH ×2 (08:57→17:31)
[2020-06-01 09:33] LABS: Basophils % 0.1 %; Eosinophils % 0.3 %; Hematocrit 28.8 % (37.5-50.1); Hemoglobin 9.2 g/dL (12.9-16.9); Immature Granulocytes % 0.9 % (0-4); Lymphocytes # 1.2 K/mcL (0.6-4.6); Lymphocytes % 8.1 %; Mean Corpuscular HGB Conc 31.9 g/dL (31.6-35.5); Mean Corpuscular Hemoglobin 31.5 pg (28.0-33.3); Mean Corpuscular Volume 98.6 fL (83.0-100.0); Mean Platelet Volume 10.4 fL (9.4-12.4); Monocytes % 7.3 %; Neutrophils # 11.8 K/mcL (1.6-8.9); Platelet Count 211 K/mcL (140-400); Red Blood Count 2.92 M/mcL (4.19-5.50); Red Cell Distribution Width 15.4 % (11.5-14.5); Segmented Neutrophils % 83.3 %; White Blood Count 14.2 K/mcL (4.3-11.1)
[2020-06-01 09:39] LABS: VBG HCO3 19 mEq/L (21-27); VBG PCO2 34 mmHg (41-51); VBG PH 7.35 pH Units (7.32-7.42); VBG PO2 220 mmHg (25-50)
[2020-06-01 09:51] LABS: Calcium 8.4 mg/dL (8.6-10.3); Potassium 4.1 mEq/L (3.5-5.1)
[2020-06-01] MEDS: Insulin LISPRO 300 UNITS/3 ML VIAL SUBQ SCH ×4 (11:41→22:23)
[2020-06-01] MEDS ORDERED: *HR* OxyCODONE/APAP 5/325 TABLET PO PRN (12:57)
[2020-06-01] MEDS ORDERED: 0.9 % Sodium Chloride 1,000 ML IVC SCH (13:15)
[2020-06-01] MEDS: *HR* OxyCODONE/APAP 10/325 TABLET PO PRN (15:29)
[2020-06-01] MEDS: Insulin DETEMIR 100 UNIT/ML X5UNITS SUBQ SCH (22:25)
[2020-06-02 01:31] LABS: Basophils % 0.2 %; Eosinophils # 0.1 K/mcL (0.0-0.6); Hematocrit 28.9 % (37.5-50.1); Hemoglobin 9.2 g/dL (12.9-16.9); Lymphocytes # 1.1 K/mcL (0.6-4.6); Lymphocytes % 8.9 %; Mean Corpuscular HGB Conc 31.8 g/dL (31.6-35.5); Mean Corpuscular Hemoglobin 31.3 pg (28.0-33.3); Mean Corpuscular Volume 98.3 fL (83.0-100.0); Mean Platelet Volume 10.8 fL (9.4-12.4); Monocytes % 8.5 %; Neutrophils # 9.7 K/mcL (1.6-8.9); Platelet Count 185 K/mcL (140-400); Red Blood Count 2.94 M/mcL (4.19-5.50); Red Cell Distribution Width 15.3 % (11.5-14.5); Segmented Neutrophils % 79.4 %; White Blood Count 12.2 K/mcL (4.3-11.1)
[2020-06-02] MEDS: *HR* OxyCODONE/APAP 10/325 TABLET PO PRN (01:49)
[2020-06-02] MEDS: Piperacillin/Tazobactam 3.375 GM in 0.9 % Sodium Chloride Mini Bag 100 ML IVPB SCH ×3 (01:49→17:24)
[2020-06-02 01:50] LABS: Calcium 8.2 mg/dL (8.6-10.3); Potassium 4.3 mEq/L (3.5-5.1)
[2020-06-02] MEDS: Clindamycin 600 MG/50 ML 600 MG/50 ML IV.SOLN IVPB SCH ×3 (05:02→19:36)
[2020-06-02] MEDS: Insulin LISPRO 300 UNITS/3 ML VIAL SUBQ SCH ×4 (07:39→19:31)
[2020-06-02] MEDS: carvediloL 6.25 MG TABLET PO SCH ×2 (07:58→17:24)
[2020-06-02] MEDS: PARoxetine 20 MG TABLET PO SCH (07:59)
[2020-06-02] MEDS ORDERED: Perflutren Lipid Microsphere 1.3 ML in 0.9 % Sodium Chloride 8.7 ML IVP PRN (08:07)
[2020-06-02 09:30] LABS: Bilirubin,Urine Negative (Negative); Blood,Urine Moderate (Negative); Clarity,Urine Clear (Clear); Color,Urine Light-Yellow (Yellow); Glucose,Urine (UA) Normal (Normal); Ketones,Urine Negative (Negative); Leukocyte Esterase,Urine Negative (Negative); Nitrite,Urine Negative (Negative); PH,Urine 5.5 pH Units (5.0-8.0); Protein,Urine 30 mg/dL (Neg-Trace); Specific Gravity,Urine 1.019 (1.010-1.025); Squamous Epithelial Cell,Urine Few per hpf (None-Few); Urobilinogen,Urine Normal (Normal)
[2020-06-02] MEDS: Sodium Bicarbonate 150 MEQ in Water for inj. (sterile) 1,000 ML IVC SCH (11:53)
[2020-06-02 15:09] LABS: Protein/Creatinine Ratio,Urine 0.98 mg/mg (0.00-0.20); Sodium, Urine 65.6 mEq/L
[2020-06-02] MEDS: Insulin DETEMIR 100 UNIT/ML X5UNITS SUBQ SCH (19:35)
[2020-06-03] MEDS: Piperacillin/Tazobactam 3.375 GM in 0.9 % Sodium Chloride Mini Bag 100 ML IVPB SCH ×3 (01:29→16:52)
[2020-06-03] MEDS: Clindamycin 600 MG/50 ML 600 MG/50 ML IV.SOLN IVPB SCH (04:28)
[2020-06-03 04:29] LABS: Basophils # 0.1 K/mcL (0.0-0.2); Basophils % 0.6 %; Eosinophils # 0.2 K/mcL (0.0-0.6); Eosinophils % 1.7 %; Hematocrit 29.9 % (37.5-50.1); Hemoglobin 9.7 g/dL (12.9-16.9); Immature Granulocytes % 4.3 % (0-4); Lymphocytes # 0.8 K/mcL (0.6-4.6); Lymphocytes % 7.1 %; Mean Corpuscular HGB Conc 32.4 g/dL (31.6-35.5); Mean Corpuscular Hemoglobin 31.5 pg (28.0-33.3); Mean Corpuscular Volume 97.1 fL (83.0-100.0); Mean Platelet Volume 10.7 fL (9.4-12.4); Monocytes # 0.8 K/mcL (0.0-1.3); Monocytes % 7.5 %; Neutrophils # 8.5 K/mcL (1.6-8.9); Platelet Count 192 K/mcL (140-400); Red Blood Count 3.08 M/mcL (4.19-5.50); Red Cell Distribution Width 14.9 % (11.5-14.5); Segmented Neutrophils % 78.8 %; White Blood Count 10.8 K/mcL (4.3-11.1)
[2020-06-03] MEDS: Sodium Bicarbonate 150 MEQ in Water for inj. (sterile) 1,000 ML IVC SCH (04:34)
[2020-06-03 04:47] LABS: % Iron Saturation 11 % (20-55); Calcium 7.4 mg/dL (8.6-10.3); Iron 17 mcg/dL (65-175); Potassium 4.1 mEq/L (3.5-5.1); Transferrin 107 mg/dL (203-362)
[2020-06-03 05:05] LABS: Ferritin 275 ng/mL (20-250)
[2020-06-03] MEDS: carvediloL 6.25 MG TABLET PO SCH ×2 (08:25→16:52)
[2020-06-03] MEDS: PARoxetine 20 MG TABLET PO SCH (08:35)
[2020-06-03] MEDS: Insulin LISPRO 300 UNITS/3 ML VIAL SUBQ SCH ×4 (09:04→20:34)
[2020-06-03 13:52] LABS: Magnesium 1.5 mg/dL (1.6-2.6)
[2020-06-03] MEDS ORDERED: Insulin DETEMIR 100 UNIT/ML X5UNITS SUBQ SCH (21:00)
[2020-06-04 01:27] LABS: Hematocrit 31.6 % (37.5-50.1); Mean Corpuscular HGB Conc 31.6 g/dL (31.6-35.5); Mean Corpuscular Hemoglobin 30.1 pg (28.0-33.3); Mean Corpuscular Volume 95.2 fL (83.0-100.0); Platelet Count 206 K/mcL (140-400); Red Blood Count 3.32 M/mcL (4.19-5.50); Red Cell Distribution Width 14.7 % (11.5-14.5); White Blood Count 12.4 K/mcL (4.3-11.1)
[2020-06-04 01:49] LABS: Calcium 7.7 mg/dL (8.6-10.3); Potassium 3.7 mEq/L (3.5-5.1)
[2020-06-04] MEDS: Piperacillin/Tazobactam 3.375 GM in 0.9 % Sodium Chloride Mini Bag 100 ML IVPB SCH ×3 (02:04→17:56)
[2020-06-04 02:13] LABS: Platelet Estimate Normal (Normal); Poikilocytosis 1+ (Not Present)
[2020-06-04 02:14] LABS: Eosinophils # 0.5 K/mcL (0.0-0.6); Lymphocytes # 0.3 K/mcL (0.6-4.6); Neutrophils # 10.2 K/mcL (1.6-8.9)
[2020-06-04] MEDS: Insulin LISPRO 300 UNITS/3 ML VIAL SUBQ SCH ×4 (09:29→20:42)
[2020-06-04] MEDS: carvediloL 6.25 MG TABLET PO SCH ×3 (09:29→20:50)
[2020-06-04] MEDS: PARoxetine 20 MG TABLET PO SCH (09:30)
[2020-06-04] MEDS ORDERED: Lidocaine Viscous Oral Soln 15 ML SOLUTION MM PRN (13:34)
[2020-06-04] MEDS ORDERED: 0.9 % Sodium Chloride 500 ML IVC ONE (13:35)
[2020-06-04] MEDS: *HR* Midazolam HCl 5 MG/5 ML VIAL IVP PRN ×2 (14:10→14:15)
[2020-06-04] MEDS: *HR* FentaNYL (PF) 100 MCG/2 ML VIAL IVP PRN ×2 (14:10→14:15)
[2020-06-04] MEDS: Insulin DETEMIR 100 UNIT/ML X5UNITS SUBQ SCH (20:42)
[2020-06-05 01:58] LABS: Basophils # 0.1 K/mcL (0.0-0.2); Basophils % 0.6 %; Eosinophils # 0.3 K/mcL (0.0-0.6); Eosinophils % 2.1 %; Hematocrit 34.3 % (37.5-50.1); Immature Granulocytes % 4.1 % (0-4); Lymphocytes # 0.9 K/mcL (0.6-4.6); Lymphocytes % 7.2 %; Mean Corpuscular HGB Conc 32.1 g/dL (31.6-35.5); Mean Corpuscular Hemoglobin 30.7 pg (28.0-33.3); Mean Corpuscular Volume 95.8 fL (83.0-100.0); Mean Platelet Volume 10.7 fL (9.4-12.4); Monocytes # 0.8 K/mcL (0.0-1.3); Monocytes % 6.1 %; Neutrophils # 10.3 K/mcL (1.6-8.9); Platelet Count 211 K/mcL (140-400); Red Blood Count 3.58 M/mcL (4.19-5.50); Red Cell Distribution Width 14.7 % (11.5-14.5); Segmented Neutrophils % 79.9 %; White Blood Count 12.8 K/mcL (4.3-11.1)
[2020-06-05 02:10] LABS: Calcium 7.8 mg/dL (8.6-10.3); Potassium 3.8 mEq/L (3.5-5.1)
[2020-06-05] MEDS: Piperacillin/Tazobactam 3.375 GM in 0.9 % Sodium Chloride Mini Bag 100 ML IVPB SCH ×3 (02:46→17:54)
[2020-06-05] MEDS: PARoxetine 20 MG TABLET PO SCH (08:24)
[2020-06-05] MEDS: Insulin LISPRO 300 UNITS/3 ML VIAL SUBQ SCH ×4 (08:24→19:54)
[2020-06-05] MEDS: carvediloL 6.25 MG TABLET PO SCH ×2 (08:24→16:36)
[2020-06-05] MEDS: Insulin DETEMIR 100 UNIT/ML X5UNITS SUBQ SCH (21:09)
[2020-06-06 01:12] LABS: Basophils # 0.1 K/mcL (0.0-0.2); Basophils % 0.6 %; Eosinophils # 0.4 K/mcL (0.0-0.6); Eosinophils % 3.4 %; Hematocrit 30.1 % (37.5-50.1); Hemoglobin 9.8 g/dL (12.9-16.9); Immature Granulocytes % 4.1 % (0-4); Lymphocytes % 8.6 %; Mean Corpuscular HGB Conc 32.6 g/dL (31.6-35.5); Mean Corpuscular Hemoglobin 31.5 pg (28.0-33.3); Mean Corpuscular Volume 96.8 fL (83.0-100.0); Mean Platelet Volume 10.9 fL (9.4-12.4); Monocytes # 1.1 K/mcL (0.0-1.3); Monocytes % 10.1 %; Neutrophils # 8.3 K/mcL (1.6-8.9); Platelet Count 204 K/mcL (140-400); Red Blood Count 3.11 M/mcL (4.19-5.50); Red Cell Distribution Width 14.7 % (11.5-14.5); Segmented Neutrophils % 73.2 %; White Blood Count 11.3 K/mcL (4.3-11.1)
[2020-06-06 01:28] LABS: Calcium 7.7 mg/dL (8.6-10.3); Magnesium 1.8 mg/dL (1.6-2.6); Phosphorous 2.6 mg/dL (2.7-4.5); Potassium 3.9 mEq/L (3.5-5.1)
[2020-06-06] MEDS: Piperacillin/Tazobactam 3.375 GM in 0.9 % Sodium Chloride Mini Bag 100 ML IVPB SCH ×3 (02:23→17:02)
[2020-06-06] MEDS: carvediloL 6.25 MG TABLET PO SCH ×2 (11:29→17:01)
[2020-06-06] MEDS: PARoxetine 20 MG TABLET PO SCH (11:30)
[2020-06-06] MEDS: Insulin LISPRO 300 UNITS/3 ML VIAL SUBQ SCH ×4 (11:30→19:40)
[2020-06-06] MEDS ORDERED: Lidocaine -MPF 1% 5 ML AMPUL INFILT ONE (15:43)
[2020-06-06] MEDS ORDERED: Warfarin perPT PO PRN (18:00)
[2020-06-06 18:16] LABS: INR 1.4; Prothrombin Time 16.5 Seconds (9.4-12.1)
[2020-06-06] MEDS ORDERED: *HR* Warfarin 5 MG TABLET PO SCH (19:30)
[2020-06-06] MEDS: Insulin DETEMIR 100 UNIT/ML X5UNITS SUBQ SCH (19:40)
[2020-06-07] MEDS: Piperacillin/Tazobactam 3.375 GM in 0.9 % Sodium Chloride Mini Bag 100 ML IVPB SCH ×2 (02:11→09:44)
[2020-06-07 02:45] LABS: Basophils % 0.4 %; Eosinophils # 0.3 K/mcL (0.0-0.6); Eosinophils % 2.7 %; Hematocrit 29.3 % (37.5-50.1); Hemoglobin 9.3 g/dL (12.9-16.9); Immature Granulocytes % 2.7 % (0-4); Lymphocytes # 0.9 K/mcL (0.6-4.6); Lymphocytes % 9.9 %; Mean Corpuscular HGB Conc 31.7 g/dL (31.6-35.5); Mean Corpuscular Hemoglobin 31.6 pg (28.0-33.3); Mean Corpuscular Volume 99.7 fL (83.0-100.0); Mean Platelet Volume 10.9 fL (9.4-12.4); Monocytes # 1.1 K/mcL (0.0-1.3); Monocytes % 11.4 %; Neutrophils # 6.8 K/mcL (1.6-8.9); Platelet Count 183 K/mcL (140-400); Red Blood Count 2.94 M/mcL (4.19-5.50); Red Cell Distribution Width 14.8 % (11.5-14.5); Segmented Neutrophils % 72.9 %; White Blood Count 9.4 K/mcL (4.3-11.1)
[2020-06-07 02:46] LABS: INR 1.4; Prothrombin Time 16.2 Seconds (9.4-12.1)
[2020-06-07 02:58] LABS: Calcium 7.9 mg/dL (8.6-10.3); Magnesium 1.7 mg/dL (1.6-2.6); Phosphorous 3.4 mg/dL (2.7-4.5); Potassium 4.5 mEq/L (3.5-5.1)
[2020-06-07 07:00] VITALS: BP 149/75
[2020-06-07] MEDS: Insulin LISPRO 300 UNITS/3 ML VIAL SUBQ SCH (09:21)
[2020-06-07] MEDS: carvediloL 6.25 MG TABLET PO SCH (09:42)
[2020-06-07] MEDS: PARoxetine 20 MG TABLET PO SCH (09:44)
== END 2020-06-07 10:46 | disposition home or self-care (01) | DRG 239 ==
LOC: 3NENU 06:03 → SAMDAY 06:03 → SUATTDRO 08:19
PROVIDERS: ADMIT Student in an Organized Health Care Education/Training Program; ATTEND Internal Medicine

== ENCOUNTER 2020-12-23 03:46 | Inpatient (IN) ==
[2020-12-23 04:45] LABS: Basophils % 0.1 %; Lymphocytes % 5.3 %; Mean Corpuscular Hemoglobin 29.4 pg (28.0-33.3); Mean Corpuscular Volume 94.9 fL (83.0-100.0); Mean Platelet Volume 11.7 fL (9.4-12.4); Monocytes # 0.5 K/mcL (0.0-1.3); Monocytes % 2.5 %; Nucleated Red Blood Cells 0.2 /100 WBC (0); Platelet Count 287 K/mcL (140-400); Red Blood Count 1.36 M/mcL (4.19-5.50); Red Cell Distribution Width 17.1 % (11.5-14.5); Segmented Neutrophils % 89.1 %; White Blood Count 19.4 K/mcL (4.3-11.1)
[2020-12-23 04:49] LABS: Activated Partial Thrombo Time 22.3 Seconds (26.0-36.0)
[2020-12-23 05:04] LABS: Albumin 2.8 g/dL (3.5-5.7); Albumin/Globulin Ratio 0.8 (1.1-2.2); Bilirubin,Direct 0.1 mg/dL (0.0-0.2); Bilirubin,Indirect 0.3 mg/dL (0.0-1.0); Bilirubin,Total 0.4 mg/dL (0.3-1.0); Calcium 9.8 mg/dL (8.6-10.3); Globulin 3.4 g/dL (2.4-3.5); Magnesium 2.1 mg/dL (1.6-2.6); Phosphorous 6.3 mg/dL (2.7-4.5); Potassium 6.2 mEq/L (3.5-5.1); Total Protein 6.2 g/dL (6.4-8.9); Troponin I 0.04 ng/mL (< 0.04)
[2020-12-23 05:09] LABS: Hematocrit 12.9 % (37.5-50.1); INR 4.5; Neutrophils # 17.3 K/mcL (1.6-8.9); Prothrombin Time 49.7 Seconds (9.4-12.1)
[2020-12-23] MEDS ORDERED: 0.9 % Sodium Chloride 1,000 ML IVC ONE ×2 (05:09→07:06)
[2020-12-23] MEDS ORDERED: Vancomycin 1,250 MG/262.5 ML IV.SOLN IVPB ONE (05:11)
[2020-12-23] MEDS ORDERED: Piperacillin/Tazobactam 3.375 GM in 0.9 % Sodium Chloride Mini Bag 100 ML IVPB ONE (05:12)
[2020-12-23] MEDS ORDERED: 0.9 % Sodium Chloride 250 ML ONE ×2 (06:32→11:37)
[2020-12-23 06:56] LABS: VBG HCO3 12 mEq/L (21-27); VBG PCO2 29 mmHg (41-51); VBG PH 7.24 pH Units (7.32-7.42); VBG PO2 54 mmHg (25-50)
[2020-12-23 07:41] LABS: Bacteria,Urine Few per hpf (None-Few); Bilirubin,Urine Negative (Negative); Blood,Urine Trace (Negative); Budding Yeast,Urine Moderate per hpf (None Seen); Clarity,Urine Clear (Clear); Color,Urine Light-Yellow (Yellow); Glucose,Urine (UA) 30 mg/dL (Normal); Ketones,Urine Negative (Negative); Leukocyte Esterase,Urine Large (Negative); Mucus,Urine Few per lpf (None-Few); Nitrite,Urine Negative (Negative); PH,Urine 5.5 pH Units (5.0-8.0); Protein,Urine Trace mg/dL (Neg-Trace); RBC,Urine 0-3 per hpf (0-3); Specific Gravity,Urine 1.017 (1.010-1.025); Urobilinogen,Urine Normal (Normal); WBC,Urine 50-100 per hpf (0-3)
[2020-12-23] MEDS ORDERED: Pantoprazole 80 MG in 0.9 % Sodium Chloride 50 ML IVPB ONE (08:19)
[2020-12-23] MEDS ORDERED: HUM PROTHROMBIN CPLX IVPB ONE (08:30)
[2020-12-23] MEDS ORDERED: Norepinephrine 4 MG/254 ML IV.SOLN IVC SCH (08:30)
[2020-12-23] MEDS ORDERED: WATER FOR INJ IVPB ONE (08:30)
[2020-12-23] MEDS ORDERED: [UNRECOGNIZED DRUG - OTHER] IVPB ONE (08:30)
[2020-12-23] MEDS ORDERED: Hydrocortisone Sodium Succ 100 MG/2 ML VIAL IVP ONE (08:32)
[2020-12-23] MEDS ORDERED: Acetaminophen 325 MG TABLET PO PRN (09:29)
[2020-12-23] MEDS ORDERED: *HR* Dextrose 50 % in Water (Vial) 50 ML VIAL IVP PRN (09:29)
[2020-12-23] MEDS ORDERED: Dextrose Gel 15 GM/37.5 ML TUBE PO PRN ×2 (09:29)
[2020-12-23] MEDS ORDERED: Naloxone 0.4 MG/ML INJ IVP PRN (09:29)
[2020-12-23] MEDS ORDERED: D5% in Water 1,000 ML IVC PRN (09:29)
[2020-12-23] MEDS ORDERED: Vancomycin (wt based) 1,000 MG VIAL IVPB SCH (10:00)
[2020-12-23] MEDS ORDERED: Vancomycin 1 EACH in 0.9 % Sodium Chloride 250 ML IVPB SCH (11:00)
[2020-12-23 11:09] LABS: Adenovirus Not Detected (Not Detect); Bordetella Pertussis Not Detected (Not Detect); Chlamydophila pneumoniae Not Detected (Not Detect); Coronavirus 229E Not Detected (Not Detect); Coronavirus HKU1 Not Detected (Not Detect); Coronavirus NL63 Not Detected (Not Detect); Coronavirus OC43 Not Detected (Not Detect); Human Metapneumovirus Not Detected (Not Detect); Human Rhinovirus/Enterovirus Not Detected (Not Detect); Influenza A Subtype 2009 H1 Not Detected (Not Detect); Influenza B Not Detected (Not Detect); Mycoplasma pneumoniae Not Detected (Not Detect); Parainfluenza Virus 1 Not Detected (Not Detect); Parainfluenza Virus 2 Not Detected (Not Detect); Parainfluenza Virus 3 Not Detected (Not Detect); Parainfluenza Virus 4 Not Detected (Not Detect); Respiratory Syncytial Virus Not Detected (Not Detect); SARS-CoV-2 Not Detected (Not Detect)
[2020-12-23 11:20] LABS: Albumin 2.4 g/dL (3.5-5.7); Albumin/Globulin Ratio 0.8 (1.1-2.2); Bilirubin,Direct 0.2 mg/dL (0.0-0.2); Bilirubin,Indirect 0.3 mg/dL (0.0-1.0); Bilirubin,Total 0.5 mg/dL (0.3-1.0); Calcium 8.7 mg/dL (8.6-10.3); Globulin 2.9 g/dL (2.4-3.5); Magnesium 1.8 mg/dL (1.6-2.6); Phosphorous 5.8 mg/dL (2.7-4.5); Potassium 5.1 mEq/L (3.5-5.1); Total Protein 5.3 g/dL (6.4-8.9)
[2020-12-23 11:24] LABS: Estimated Average Glucose 151 mg/dl; Hemoglobin A1C 6.9 %; Troponin I 0.47 ng/mL (< 0.04)
[2020-12-23 11:30] LABS: Hematocrit 14.4 % (37.5-50.1); Hemoglobin 4.7 g/dL (12.9-16.9)
[2020-12-23] MEDS: Pantoprazole 40 MG in 0.9 % Sodium Chloride Mini Bag 100 ML IVC SCH ×3 (12:54→22:57)
[2020-12-23] MEDS: Insulin LISPRO 300 UNITS/3 ML VIAL SUBQ SCH ×3 (12:55→19:51)
[2020-12-23 14:33] LABS: INR 2.1; Prothrombin Time 23.7 Seconds (9.4-12.1)
[2020-12-23] MEDS ORDERED: Perflutren Lipid Microsphere 1.3 ML in 0.9 % Sodium Chloride 8.7 ML IVP PRN (14:56)
[2020-12-23] MEDS: Hydrocortisone Sodium Succ 100 MG/2 ML VIAL IVP SCH ×2 (15:10→23:02)
[2020-12-23] MEDS ORDERED: *HR* HYDROcodone/Acet 5/325 mg TABLET PO PRN (16:36)
[2020-12-23] MEDS: Piperacillin/Tazobactam 3.375 GM in 0.9 % Sodium Chloride Mini Bag 100 ML IVPB SCH (17:57)
[2020-12-23 18:41] LABS: Hematocrit 23.3 % (37.5-50.1)
[2020-12-23 18:43] LABS: Hemoglobin 7.4 g/dL (12.9-16.9)
[2020-12-23 21:57] LABS: Hematocrit 23.5 % (37.5-50.1); Hemoglobin 7.7 g/dL (12.9-16.9)
[2020-12-23] MEDS: *HR* LORazepam 0.5 MG TABLET PO SCH (22:58)
[2020-12-24] MEDS: Insulin LISPRO 300 UNITS/3 ML VIAL SUBQ SCH ×6 (00:31→20:25)
[2020-12-24] MEDS: Pantoprazole 40 MG in 0.9 % Sodium Chloride Mini Bag 100 ML IVC SCH ×4 (03:54→20:16)
[2020-12-24 05:05] LABS: Hemoglobin 7.7 g/dL (12.9-16.9); Mean Corpuscular HGB Conc 33.5 g/dL (31.6-35.5); Mean Corpuscular Hemoglobin 30.6 pg (28.0-33.3); Mean Corpuscular Volume 91.3 fL (83.0-100.0); Mean Platelet Volume 10.7 fL (9.4-12.4); Nucleated Red Blood Cells 0.6 /100 WBC (0); Platelet Count 201 K/mcL (140-400); Red Blood Count 2.52 M/mcL (4.19-5.50); Red Cell Distribution Width 16.1 % (11.5-14.5); White Blood Count 17.2 K/mcL (4.3-11.1)
[2020-12-24 05:11] LABS: INR 1.8; Prothrombin Time 20.6 Seconds (9.4-12.1)
[2020-12-24 05:15] LABS: VBG Ionized Calcium 1.24 mmol/L (1.15-1.35)
[2020-12-24 05:26] LABS: Albumin 2.5 g/dL (3.5-5.7); Albumin/Globulin Ratio 0.8 (1.1-2.2); Bilirubin,Direct 0.4 mg/dL (0.0-0.2); Bilirubin,Indirect 0.6 mg/dL (0.0-1.0); Calcium 8.3 mg/dL (8.6-10.3); Globulin 3.1 g/dL (2.4-3.5); Magnesium 1.8 mg/dL (1.6-2.6); Potassium 4.2 mEq/L (3.5-5.1); Total Protein 5.6 g/dL (6.4-8.9)
[2020-12-24 05:51] VITALS: PULSE 70
[2020-12-24] MEDS: Piperacillin/Tazobactam 3.375 GM in 0.9 % Sodium Chloride Mini Bag 100 ML IVPB SCH ×2 (06:16→20:17)
[2020-12-24 06:47] LABS: Anisocytosis 2+ (Not Present); Macrocytosis Present (Not Present); Ovalocytes 1+ (Not Present); Poikilocytosis 1+ (Not Present)
[2020-12-24 06:49] LABS: Microcytosis Present (Not Present); Monocytes # 0.3 K/mcL (0.0-1.3); Neutrophils # 15.8 K/mcL (1.6-8.9); Platelet Estimate Normal (Normal); Schistocytes 1+ (Not Present)
[2020-12-24] MEDS: Hydrocortisone Sodium Succ 100 MG/2 ML VIAL IVP SCH (07:31)
[2020-12-24] MEDS: *HR* LORazepam 0.5 MG TABLET PO SCH ×3 (07:31→20:19)
[2020-12-24] MEDS ORDERED: Aspirin 81 MG TAB.CHEW PO SCH (09:00)
[2020-12-24 12:38] LABS: INR 1.7; Prothrombin Time 19.1 Seconds (9.4-12.1)
[2020-12-24] MEDS ORDERED: Hydrocortisone Sodium Succ 100 MG/2 ML VIAL IVP SCH (16:00)
[2020-12-24] MEDS ORDERED: 0.9 % Sodium Chloride 250 ML ONE (20:09)
[2020-12-24 20:39] VITALS: BP 141/68; O2SAT 100
[2020-12-24 20:50] VITALS: TEMP 97.4
== END 2020-12-24 21:00 | disposition short-term general hospital (02) | DRG 871 ==
LOC: EMEROOARM 03:46 → ICNU 09:32
PROVIDERS: ADMIT Pediatrics; ATTEND Pediatrics